=== PATIENT | female | born 1930 | race Caucasian/White ===

== ENCOUNTER 2018-06-05 15:53 | Emergency (ER) | payer OTHER, BC ==
--- NOTE | 2018-06-05 16:35 | RAD REPORT ---
EXAM DESCRIPTION: CT - Head C Spine Cap Wo Con - 06/05/2018 4:18 pm TECHNIQUE: Computed axial tomography of the head and cervical spine was obtained. Coronal and sagitt al reconstruction was performed Computed axial tomography of the chest, abdomen and pelvis was obtained. Contrast was not requested. All CT scans are performed using dose optimization technique as appropriate and may include automated exposure control or mA/KV adjustment according to patient size. CLINICAL HISTORY: Head and neck injury with chest and abdominal pain status post fall COMPARISON: None FINDINGS: An intracranial bleed is not seen. Moderate to marked low-density areas within periventricular, deep and subcortical white matter likely indicate ischemic changes secondary to small vessel disease The ventricles are normal in caliber. An extra-axial fluid collection is not noted Fluid within the sinuses/mastoids is not seen. A cervical fracture is not seen. No dislocation is noted. The evaluation of mediastinum, tea, vessels, solid organs and bowel are limited secondary to the lac k of contrast administration. A mediastinal hematoma is not noted. A pleural effusion is not seen. A lung contusion is not present. The liver,spleen, pancreas, adrenals,kidneys and bladder do not demonstrate a traumatic injury. Small to moderate hiatal hernia. IMPRESSION: 1. No acute intracranial abnormality is seen. 2. A cervical fracture is not visualized. If the patient continues to have symptoms to suggest intrac ranial/spinal cord pathology MRI would be recommended 3. No traumatic abnormality involving the chest/abdomen/pelvis.
[2018-06-05 16:50] LABS: Absolute Lymphocytes (CBC) 0.9 K/uL (0.7-4.9); Absolute Monocytes 0.5 K/uL (0.1-1.3); Absolute Neutrophil 6.1 K/uL (1.8-8.0); Basophils % 0.3 % (0-1.3); Eosinophils % 1.8 % (0-4.4); Lymphocytes % 12.1 % (15.3-44.8); MCH 33.1 pg (27.0-35.0); MCV 97.5 fL (80-100); MPV 8.2 fL (7.6-11.3); Monocytes % 6.2 % (3.3-12.3); RBC Red Blood Cell Count 4.52 M/uL (3.86-4.86)
[2018-06-05 17:01] LABS: Protime INR 1.06
[2018-06-05 17:20] LABS: Potassium 4.2 mmol/L (3.5-5.1)
[2018-06-05] MEDS ORDERED: NA CHLORIDE 0.9% 500 ML ONE (18:00)
--- NOTE | 2018-06-05 18:08 | EDPHYS ---
Physician Documentation [facility] Name: Cher Nelson Age: 88 yrs Sex: Female : 1930 Arrival Date: 06/05/2018 Time: 16:04 Bed 5 Private MD: ED Physician Naeem Bermudez HPI: 06/05 16:13 This 88 yrs old Female presents to ER via EMS with complaints of Fall Injury. rn 16:13 Details of fall: The patient fell from a height, off furniture. Onset: The rn symptoms/episode began/occurred just prior to arrival. Associated injuries: The patient sustained unknown. Severity of symptoms: At their worst the symptoms were mild, in the emergency department the symptoms have improved. The patient has experienced similar episodes in the past. Per EMS report, vomited, not sure if before or after fall but has a history of vertigo and dementia, [facility], "slid" off of bed, landed on floor, no obvious sign of trauma, but wanted her evaluated. . Historical: - Allergies: 16:14 No Known Allergies; ss - PMHx: 16:14 Anxiety; Depression; Dementia; Alzheimers; ss - Immunization history:: Adult Immunizations unknown. - Social history:: Smoking status: Patient/guardian denies using tobacco. - Ebola Screening: : Patient denies exposure to infectious person Patient denies travel to an Ebola-affected area in the 21 days before illness onset. - Family history:: not pertinent. - Hospitalizations: : No recent hospitalization is reported. ROS: 16:13 Unable to obtain ROS due to baseline dementia. rn Exam: 16:13 Constitutional: Thin woman, no acute distress, laying on backboard Head/Face: rn Normocephalic, atraumatic. Eyes: Pupils equal round and reactive to light. Periorbital areas with no swelling, redness, or edema. ENT: no oral trauma Neck: no midline tenderness, in ccollar Chest/axilla: Normal chest wall appearance and motion. Nontender with no deformity. No lesions are appreciated. Cardiovascular: Regular rate and rhythm. No pulse deficits. Respiratory: Lungs have equal breath sounds bilaterally, clear to auscultation. No increased work of breathing, no retractions or nasal flaring. Abdomen/GI: soft, non-tender Back: No spinal tenderness. MS/ Extremity: Pulses equal, no cyanosis. Neurovascular intact. Full, normal range of motion. Equal circumference. Neuro: Awake and alert, GCS 15, oriented to person, Motor strength 5/5 in all extremities. Sensory grossly intact. Cerebellar exam normal. Vital Signs: 16:08 BP 156 / 94; Pulse 90; Resp 16; Temp 97.4; Pulse Ox 97% on R/A; Pain 0/10; ss 17:18 BP 137 / 88; Pulse 87; Resp 18; Pulse Ox 98% on R/A; ph 18:51 BP 139 / 84; Pulse 88; Resp 17; Pulse Ox 98% on R/A; tw2 MDM: 16:09 Patient medically screened. rn 16:24 ED course: half-way contacted, states needed to throw up, so got out of bed rn quickly, fell, then threw up because she didn't make it to bathroom.. 18:06 Differential diagnosis: closed head injury, fracture, sprain, strain. Data reviewed: rn vital signs, nurses notes, lab test result(s), radiologic studies, CT scan, and as a result, I will discharge patient. Counseling: I had a detailed discussion with the patient and/or guardian regarding: the historical points, exam findings, and any diagnostic results supporting the discharge/admit diagnosis, lab results, radiology results, the need for outpatient follow up, to return to the emergency department if symptoms worsen or persist or if there are any questions or concerns that arise at home. Response to treatment: and as a result, I will discharge patient. Special discussion: I discussed with the patient/guardian in detail that at this point there is no indication for admission to the hospital. It is understood, however, that if the symptoms persist or worsen the patient needs to return immediately for re-evaluation. 18:08 ED course: No acute findings on ct head/cspine/chest/abd/pelvis, neg UA, will dc home rn as patient with known dementia and vertigo, fell while trying to get out of bed to throw up, no longer throwing up, asymptomatic, and stable vitals. . 06/05 16:08 Order name: CBC with Diff; Complete Time: 16:56 rn 06/05 16:08 Order name: Basic Metabolic Panel; Complete Time: 17:49 rn 06/05 16:08 Order name: PT-INR; Complete Time: 17:49 rn 06/05 16:08 Order name: Ptt, Activated; Complete Time: 17:49 rn 06/05 16:09 Order name: Urine Microscopic Only; Complete Time: 18:26 rn 06/05 18:26 Order name: Urine Dipstick--Ancillary (enter results) bd 06/05 16:08 Order name: IV Start; Complete Time: 16:23 rn 06/05 16:08 Order name: CT Traumagram (Head C Spine CAP wo con); Complete Time: 16:37 rn 06/05 16:08 Order name: EKG; Complete Time: 16:08 rn 06/05 16:08 Order name: EKG - Nurse/Tech; Complete Time: 16:23 rn 06/05 16:09 Order name: Urine Dipstick-Ancillary (obtain specimen); Complete Time: 17:18 rn Administered Medications: 17:54 Drug: NS 0.9% 500 ml Route: IV; Rate: bolus; Site: right wrist; tw2 19:01 Follow up: Response: No adverse reaction; IV Status: Completed infusion; IV Intake: tw2 500ml Disposition: 06/05/18 18:07 Discharged to Home. Impression: Vomiting, Fall without injury. - Condition is Stable. - Discharge Instructions: Fall Prevention in the Home, Nausea and Vomiting, Adult. - Medication Reconciliation Form, Thank You Letter, Antibiotic Education, Prescription Opioid Use form. - Follow up: Private Physician; When: As needed; Reason: Recheck today's complaints, Re-evaluation by your physician. - Problem is new. - Symptoms have improved. Signatures: Dispatcher [employer] EDMS Naeem Bermudez MD MD rn Smirch, Shelby, RN RN ss Krenek, Amber, RN RN ak1 Tarsha Colmenares RN RN tw2 Corrections: (The following items were deleted from the chart) 20:04 18:07 06/05/2018 18:07 Discharged to Home. Impression: Vomiting; Fall without injury. ak1 Condition is Stable. Forms are Medication Reconciliation Form, Thank You Letter, Antibiotic Education, Prescription Opioid Use. Follow up: Private Physician; When: As needed; Reason: Recheck today's complaints, Re-evaluation by your physician. Problem is new. Symptoms have improved. rn
--- NOTE | 2018-06-05 18:08 | ER ---
Nurse's Notes [facility] Name: Cher Nelson Age: 88 yrs Sex: Female : 1930 Arrival Date: 06/05/2018 Time: 16:04 Bed 5 Private MD: Diagnosis: Vomiting;Fall without injury Presentation: 06/05 16:09 Transition of care: patient was received from another setting of care (long-term care facility), [facility]. Onset of symptoms was June 05, 2018. Risk Assessment: Do you want to hurt yourself or someone else? Patient reports no desire to harm self or others. Initial Sepsis Screen: Does the patient meet any 2 criteria? No. Patient's initial sepsis screen is negative. Does the patient have a suspected source of infection? No. Patient's initial sepsis screen is negative. Care prior to arrival: Medication(s) given: Phenergan, 12.5 mg, IV initiated. 20 GA, in the right hand. 16:09 Acuity: KEVIN 3 ss 16:09 Method Of Arrival: EMS: [facility] ss 16:09 Presenting complaint: EMS states: Pt was getting out of bed to vomit in the restroom, ss but fell. Pt then vomited after. EMS reports that assisted told them that she has a history of vertigo and vomits during her dizzy episodes. Note Pt arrived on C collar and backboard. Historical: - Allergies: 16:14 No Known Allergies; ss - PMHx: 16:14 Anxiety; Depression; Dementia; Alzheimers; ss - Immunization history:: Adult Immunizations unknown. - Social history:: Smoking status: Patient/guardian denies using tobacco. - Ebola Screening: : Patient denies exposure to infectious person Patient denies travel to an Ebola-affected area in the 21 days before illness onset. - Family history:: not pertinent. - Hospitalizations: : No recent hospitalization is reported. Screenin:39 Abuse screen: Denies threats or abuse. Denies injuries from another. Nutritional ph screening: No deficits noted. Tuberculosis screening: No symptoms or risk factors identified. 16:40 Fall Risk Fall in past 12 months (25 points). Secondary diagnosis (15 points) dementia, ph IV access (20 points). Ambulatory Aid- Crutches/Cane/Walker (15 pts). Gait- Weak (10 pts.). Mental Status- Overestimates/Forgets Limitations (15 pts.). Total Nolan Fall Scale indicates High Risk Score (45 or more points). Fall prevention measures have been instituted. Side Rails Up X 2 Frequent Obs/Assessments Occuring Family Present and informed to notify staff if the need to leave the bedside As available patient and family educated on Fall Prevention Program and Strategies. Assessment: 16:15 Reassessment: Pt removed from backboard using log roll technique. Posterior examined by ss Dr. Bermudez. C collar remains in place. 16:41 General: Appears in no apparent distress. comfortable, slender, Behavior is calm, ph cooperative. Pain: Denies pain. Neuro: Level of Consciousness is awake, alert, obeys commands, Oriented to person, place, Reports dizziness, since this morning. Cardiovascular: Capillary refill < 3 seconds in bilateral fingers Patient's skin is warm and dry. Respiratory: Airway is patent Respiratory effort is even, unlabored, Respiratory pattern is regular, symmetrical, Denies shortness of breath pain with respiration. GI: Reports nausea, vomiting, since this morning Patient currently denies abdominal pain, diarrhea. Derm: Skin is intact, is fragile, is thin, Skin is pink, warm \T\ dry. 17:24 Reassessment: Patient appears in no apparent distress at this time. Patient and/or ph family updated on plan of care and expected duration. Pain level reassessed. c-collar removed. 18:49 Reassessment: Called Report to [facility] who stated that patient's ss granddaughter should be coming to pick patient up however they only have a phone number for a daughter in law, and are unsure when the family member will be coming to get her. 18:51 Reassessment: Patient appears in no apparent distress at this time. Patient and/or tw2 family updated on plan of care and expected duration. Pain level reassessed. 19:03 Reassessment: Lou Kapoor called, Azalia stated the family was to come pick pt up. Azalia costa1 informed to pt was not picked up and no face sheet or information sheet sent with pt for family contact. Azalia stated the night [facility], [place], is busy and can not get to the face sheet for family contact. Charge nurse informed. 19:14 Reassessment: pt daughter in law Alta Nelson contacted, stated she is in [place] and ak1 will contact her daughter to pick pt up. Charge nurse informed. Vital Signs: 16:08 BP 156 / 94; Pulse 90; Resp 16; Temp 97.4; Pulse Ox 97% on R/A; Pain 0/10; ss 17:18 BP 137 / 88; Pulse 87; Resp 18; Pulse Ox 98% on R/A; ph 18:51 BP 139 / 84; Pulse 88; Resp 17; Pulse Ox 98% on R/A; tw2 ED Course: 16:04 Patient arrived in ED. rn 16:09 Naeem Bermudez MD is Attending Physician. rn 16:[address] via stretcher. jj2 16:12 Triage completed. ss 16:13 Donna Queen RN is Primary Nurse. ph 16:14 Arm band placed on right wrist. ss 16:18 CT Traumagram (Head C Spine CAP wo con) In Process Unspecified. EDMS 16:18 CT completed. Patient moved back from CT. vm2 16:40 Patient has correct armband on for positive identification. Bed in low position. Call ph light in reach. Side rails up X 1. Pulse ox on. NIBP on. Warm blanket given. 16:44 EKG done, by ordnance technician. reviewed by Naeem Bermudez MD. dt2 17:15 Straight cath inserted, using sterile technique, 16 Fr. Returned beata urine. Patient ph tolerated well. 17:19 No provider procedures requiring assistance completed. Maintain EMS IV. Dressing ph intact. Good blood return noted. Site clean \T\ dry. Gauge \T\ site: 22 RFA. 17:27 Primary Nurse role handed off by Donna Queen RN tw2 17:27 Tarsha Colmenares RN is Primary Nurse. tw2 19:01 Report given to LISSETH Cota. tw2 19:01 IV discontinued, intact, bleeding controlled, No redness/swelling at site. Pressure tw2 dressing applied. Administered Medications: 17:54 Drug: NS 0.9% 500 ml Route: IV; Rate: bolus; Site: right wrist; tw2 19:01 Follow up: Response: No adverse reaction; IV Status: Completed infusion; IV Intake: tw2 500ml Intake: 19:01 IV: 500ml; Total: 500ml. tw2 Outcome: 18:07 Discharge ordered by . rn 20:02 Discharged to assisted. pt daughter in law picked pt up from ER5 to transport pt ak1 back to [facility]. 20:02 Condition: good 20:02 Discharge instructions given to family, Instructed on discharge instructions, follow up and referral plans. Demonstrated understanding of instructions, follow-up care, report called to [facility] by Jocelyne Kunz RN at 1700 20:04 Patient left the ED. ak1 Signatures: Dispatcher [employer] EDMS Deyvi Nelson Roman, MD MD rn Smirch, Jocelyne, RN RN Beata Darby RN RN ak1 Donna Queen RN RN Tarsha Colmenares, RN RN 2 Raquel Hinkle Danielle dt2 Corrections: (The following items were deleted from the chart) 16:40 16:39 Fall Risk None identified. ph ph 17:19 17:18 BP 129 / 72; Pulse 78bpm; Resp 18bpm; Pulse Ox 100% RA; Temp 97.8F; Pain 5/10; ph ph
[2018-06-05 18:15] LABS: Urine Bacteria <20 /HPF (<20); Urine Culture Reflex Order NOT NEEDED; Urine RBC <5 /HPF (NONE SEEN)
[2018-06-05 18:30] LABS: Urine Blood NEGATIVE (NEG); Urine Glucose NEGATIVE (NEG); Urine Protein NEGATIVE (NEG); Urine Specific Gravity >1.030 (1.005-1.030); Urine pH 6.5 (5.0-7.0)
--- NOTE | 2018-06-05 22:17 | EKG ---
Test Date: 2018-06-05 Test Time: 16:08:21 Physical Medicine Physician: GIA MEASUREMENT RESULTS: Intervals: Rate: 92 CT: 182 QRSD: 84 QT: 388 QTc: 479 Mayetta: P: 60 CT: 182 QRS: -54 T: 93 INTERPRETIVE STATEMENTS: Normal sinus rhythm Possible Left atrial enlargement Left anterior fascicular block Nonspecific ST and T wave abnormality Prolonged QT Abnormal ECG No previous ECG available for comparison Electronically Signed On 06-05-18 22:16:37 MANAGER TECHNICAL SUPPORT by Moshe Robert
== END 2018-06-05 20:04 | disposition home or self-care (01) ==
LOC: ER 15:53
DX: R11.10 Vomiting, unspecified (principal); G30.9 Alzheimer's disease, unspecified; F02.80 Dementia in other diseases classified elsewhere, unspecified severity, without behavioral disturbance, psychotic disturbance, mood disturbance, and anxiety; W06.XXXA Fall from bed, initial encounter; Y93.89 Activity, other specified; Y92.122 Bedroom in nursing home as the place of occurrence of the external cause
CPT/HCPCS: 36415; 70450; 71250; 72125; 80048; 81003; 81015; 85025; 85610; 85730; 93005

== ENCOUNTER 2018-06-06 04:27 | Emergency (ER) | payer OTHER, BC ==
[2018-06-06] MEDS ORDERED: ACETAMINOPHEN 500 MG TAB ONE (05:12)
[2018-06-06 05:25] LABS: Barbiturates NEGATIVE (NEGATIVE); Benzodiazepines NEGATIVE (NEGATIVE); Cocaine NEGATIVE (NEGATIVE); METHAMPHETAM NEGATIVE (NEGATIVE); Methadone NEGATIVE (NEGATIVE); Opiates NEGATIVE (NEGATIVE); Phencyclidine NEGATIVE (NEGATIVE); THC Cannibis NEGATIVE (NEGATIVE)
--- NOTE | 2018-06-06 07:27 | ER ---
Nurse's Notes [facility] Name: Cher Nelson Age: 88 yrs Sex: Female : 1930 Arrival Date: 06/06/2018 Time: 04:34 Bed 5 Private MD: Diagnosis: Compression fractures of T12 and L1 s/p fall Presentation: 06/06 04:34 Presenting complaint: EMS states: pt fell from bed or from possible standing position. ak1 pt from [facility] was seen in ER earlier tonight. pt A\\T\\OX2 only. pt fell at approximately 0300 and placed back in bed at [facility]. pt c/o lower back pain. pt complains the "back board hurts" pt was not placed on back board for transport. Transition of care: patient was received from another setting of care (long-term care facility), [facility]. Onset of symptoms was June 06, 2018. Risk Assessment: Do you want to hurt yourself or someone else? Patient reports no desire to harm self or others. Initial Sepsis Screen: Does the patient meet any 2 criteria? No. Patient's initial sepsis screen is negative. Does the patient have a suspected source of infection? No. Patient's initial sepsis screen is negative. Care prior to arrival: None. 04:34 Method Of Arrival: EMS: [facility] ak1 04:34 Acuity: KEVIN 4 ak1 Triage Assessment: 04:42 General: Appears uncomfortable, Behavior is anxious, restless. Pain: Complains of pain ak1 in lower back pain. EENT: No signs and/or symptoms were reported regarding the EENT system. Neuro: Level of Consciousness is awake, alert, confused, Oriented to person, situation, Speech is normal, Pupils are constricted. Cardiovascular: No deficits noted. Respiratory: No deficits noted. GI: No signs and/or symptoms were reported involving the gastrointestinal system. : No signs and/or symptoms were reported regarding the genitourinary system. Derm: No signs and/or symptoms reported regarding the dermatologic system. Musculoskeletal: No signs and/or symptoms reported regarding the musculoskeletal system. Historical: - Allergies: 04:42 No Known Allergies; ak1 - Home Meds: 04:42 donepezil 10 mg oral TbDL 1 tab once daily [Active]; losartan 50 mg oral tab 1 tab once ak1 daily [Active]; meclizine 12.5 mg Oral tab 1 tabs 2 times per day [Active]; quetiapine 25 mg oral tab 1 tab 2 times per day [Active]; quetiapine 50 mg oral tab 1 tab at bed time [Active]; senna 8.6 mg oral cap 1 caps once daily [Active]; venlafaxine 150 mg oral cp24 1 cap once daily [Active]; lorazepam 1 mg Oral tab 1 tab 3 times per day [Active]; ondansetron HCl 4 mg Oral tab 1 tabs 3 times per day [Active]; - PMHx: 04:42 Alzheimers; Anxiety; Dementia; Depression; ak1 - Immunization history:: Adult Immunizations unknown. - Social history:: Smoking status: Patient/guardian denies using tobacco. - Ebola Screening: : No symptoms or risks identified at this time. - Family history:: not pertinent. - Hospitalizations: : No recent hospitalization is reported. Screenin:47 Abuse screen: Denies threats or abuse. Denies injuries from another. Nutritional ak1 screening: No deficits noted. Tuberculosis screening: No symptoms or risk factors identified. Fall Risk Fall in past 12 months (25 points). Assessment: 05:01 Reassessment: see triage assessment. ak1 05:52 Reassessment: Patient appears in no apparent distress at this time. No changes from ak1 previously documented assessment. 06:39 Reassessment: pt restless. pt informed of wait for CT results. ak1 06:39 Reassessment: pt with sitter at bedside due to pt trying to climb out of bed on ak1 previous visits. 07:59 Reassessment: Patient appears in no apparent distress at this time. Patient and/or ph family updated on plan of care and expected duration. Pain level reassessed. Pt resting quietly, remains in bed, report called to LISSETH Flynn at [facility], awaiting EMS for transport. 08:15 Reassessment: Patient appears in no apparent distress at this time. [facility] at bedside, ph report given to disease case manager, spoke w/ pt's son on phone who is pt's POA and notified him of transfer, also contacted Rina at [facility] and gave son's contact info. Vital Signs: 04:42 BP 167 / 106; Pulse 99; Resp 18; Temp 98.0; Pulse Ox 97% on R/A; Weight 60.78 kg (R); ak1 Height 5 ft. 6 in. (167.64 cm) (R); Pain 7/10; 05:36 BP 189 / 94; Pulse 96; Resp 18; Pulse Ox 97% on R/A; ak1 05:51 BP 179 / 93; Pulse 93; Resp 18; Temp 98.1; Pulse Ox 97% on R/A; ak1 07:20 BP 168 / 92; Pulse 96; Resp 20; Temp 97.8; Pulse Ox 98% on R/A; ph 04:42 Body Mass Index 21.63 (60.78 kg, 167.64 cm) ak1 ED Course: 04:34 Patient arrived in ED. ak1 04:35 Low Oliva MD is Attending Physician. me 04:37 Triage completed. ak1 04:42 Arm band placed on Patient placed in an exam room, on a stretcher, on pulse oximetry, ak1 Patient notified of wait time. 04:47 Patient has correct armband on for positive identification. Bed in low position. Side ak1 rails up X2. Pulse ox on. NIBP on. 04:48 Beata Christianson, LISSETH is Primary Nurse. ak1 05:01 UDS Sent. ak1 05:02 Straight cath inserted, using sterile technique, 16 Fr. Returned clear yellow urine. ak1 Patient tolerated well. 05:08 X-ray completed. Portable x-ray completed in exam room. Patient tolerated procedure kw well. 05:09 Pelvis XRAY In Process Unspecified. EDMS 05:09 Chest Single View XRAY In Process Unspecified. EDMS 05:[address] Spine WO Cont CT In Process Unspecified. EDMS 05:45 CT C Spine In Process Unspecified. EDMS 05:45 CT Lumbar Spine Wo Con In Process Unspecified. EDMS 07:03 initiated transfer with Tanna at the [facility]. eb 07:18 administrative approval given by Tanna Li RN at the [facility]/ eb Shyann Poon accepted the patient in transfer/ Pt going to the ER / report to be called to [phone]. 08:01 No provider procedures requiring assistance completed. Patient did not have IV access ph during this emergency room visit. Administered Medications: 05:09 Drug: Tylenol 1000 mg {Note: pt unable to swallow pills, pt placed pills under her ak1 tounge. .} Route: PO; 05:18 Follow up: Response: pt unable to swallow pills, pt placed pills under her tounge ak1 instead of swallowing pills. Outcome: 07:26 ER care complete, transfer ordered by . me 08:24 Patient left the ED. 08:24 Transferred by ground [facility] to [facility], Transfer form ph completed. X-rays sent w/ patient. Note: Report called to Rina OMNTANEZ in ED 08:24 Condition: stable Signatures: Dispatcher [employer] EDMS Lisa Caraballo Amber RN RN ak Donna Queen RN RN [facility], MD MD ayleen Kelsey Elizabeth eb
--- NOTE | 2018-06-06 07:27 | EDPHYS ---
Physician Documentation [facility] Name: Cher Nelson Age: 88 yrs Sex: Female : 1930 Arrival Date: 06/06/2018 Time: 04:34 Bed 5 Private MD: ED Physician Low Oliva HPI: 06/06 05:35 This 88 yrs old Female presents to ER via EMS with complaints of Fall Injury. wa 05:35 Details of fall: The patient fell from a supine position, out of bed. Onset: The wa symptoms/episode began/occurred just prior to arrival. Associated injuries: The patient sustained upper back injury. Severity of symptoms: At their worst the symptoms were moderate, in the emergency department the symptoms are unchanged. The patient has experienced similar episodes in the past. The patient has been recently seen by a physician: grace hawkins for same today from the ED. Historical: - Allergies: 04:42 No Known Allergies; ak1 - Home Meds: 04:42 donepezil 10 mg oral TbDL 1 tab once daily [Active]; losartan 50 mg oral tab 1 tab once ak1 daily [Active]; meclizine 12.5 mg Oral tab 1 tabs 2 times per day [Active]; quetiapine 25 mg oral tab 1 tab 2 times per day [Active]; quetiapine 50 mg oral tab 1 tab at bed time [Active]; senna 8.6 mg oral cap 1 caps once daily [Active]; venlafaxine 150 mg oral cp24 1 cap once daily [Active]; lorazepam 1 mg Oral tab 1 tab 3 times per day [Active]; ondansetron HCl 4 mg Oral tab 1 tabs 3 times per day [Active]; - PMHx: 04:42 Alzheimers; Anxiety; Dementia; Depression; ak1 - Immunization history:: Adult Immunizations unknown. - Social history:: Smoking status: Patient/guardian denies using tobacco. - Ebola Screening: : No symptoms or risks identified at this time. - Family history:: not pertinent. - Hospitalizations: : No recent hospitalization is reported. ROS: 05:37 Constitutional: Negative for fever, chills, and weight loss, Eyes: Negative for injury, wa pain, redness, and discharge, ENT: Negative for injury, pain, and discharge, Neck: Negative for injury, pain, and swelling, Cardiovascular: Negative for chest pain, palpitations, and edema, Respiratory: Negative for shortness of breath, cough, wheezing, and pleuritic chest pain, Abdomen/GI: Negative for abdominal pain, nausea, vomiting, diarrhea, and constipation, MS/Extremity: Negative for injury and deformity, Skin: Negative for injury, rash, and discoloration, Neuro: Negative for headache, weakness, numbness, tingling, and seizure. 05:37 Back: Positive for pain with movement, of the thoracic area and lumbar area. 05:37 All other systems are negative. Exam: 05:37 Constitutional: This is a well developed, well nourished patient who is awake, alert, wa and in no acute distress. Head/Face: Normocephalic, atraumatic. ENT: Nares patent. No nasal discharge, no septal abnormalities noted. Tympanic membranes are normal and external auditory canals are clear. Oropharynx with no redness, swelling, or masses, exudates, or evidence of obstruction, uvula midline. Mucous membranes moist. Neck: Trachea midline, no thyromegaly or masses palpated, and no cervical lymphadenopathy. Supple, full range of motion without nuchal rigidity, or vertebral point tenderness. No Meningismus. Cardiovascular: Regular rate and rhythm with a normal S1 and S2. No gallops, murmurs, or rubs. Normal PMI, no JVD. No pulse deficits. Respiratory: Lungs have equal breath sounds bilaterally, clear to auscultation and percussion. No rales, rhonchi or wheezes noted. No increased work of breathing, no retractions or nasal flaring. Abdomen/GI: Soft, non-tender, with normal bowel sounds. No distension or tympany. No guarding or rebound. No evidence of tenderness throughout. Skin: Warm, dry with normal turgor. Normal color with no rashes, no lesions, and no evidence of cellulitis. MS/ Extremity: Pulses equal, no cyanosis. Neurovascular intact. Full, normal range of motion. Neuro: Awake and alert, GCS 15, oriented to person, place, time, and situation. Cranial nerves II-XII grossly intact. Motor strength 5/5 in all extremities. Sensory grossly intact. Cerebellar exam normal. Normal gait. 05:37 Eyes: Pupils: pinpoint, bilaterally. 05:37 Back: vertebral tenderness, is appreciated at T6, T7, T8, T11, T12 and L1. Vital Signs: 04:42 BP 167 / 106; Pulse 99; Resp 18; Temp 98.0; Pulse Ox 97% on R/A; Weight 60.78 kg (R); ak1 Height 5 ft. 6 in. (167.64 cm) (R); Pain 7/10; 05:36 BP 189 / 94; Pulse 96; Resp 18; Pulse Ox 97% on R/A; ak1 05:51 BP 179 / 93; Pulse 93; Resp 18; Temp 98.1; Pulse Ox 97% on R/A; ak1 07:20 BP 168 / 92; Pulse 96; Resp 20; Temp 97.8; Pulse Ox 98% on R/A; ph 04:42 Body Mass Index 21.63 (60.78 kg, 167.64 cm) ak1 MDM: 04:35 Patient medically screened. ne 05:38 Differential diagnosis: fall. r/o FX. pt had a full work up earlier today that was ne negative. will eval to r/o fx. 07:01 Data reviewed: vital signs, nurses notes. Test interpretation: by ED physician or ne midlevel provider: CXR: no acute process. Pelvic X-ray: no acute fx. CT c-spine: no acute fx. T/L spine CT: compression fractures at T12 and L1. unknown chronicity . Response to treatment: the patient's symptoms have mildly improved after treatment. Special discussion: compression fx's in the T12 and L1. will transfer to higher level of care for further eval.. 06/06 04:45 Order name: UDS; Complete Time: 05:34 ne 06/06 04:45 Order name: Pelvis XRAY ne 06/06 04:45 Order name: Chest Single View XRAY ne 06/06 04:48 Order name: Thoracic Spine WO Cont CT ne 06/06 04:48 Order name: CT C Spine ne 06/06 04:48 Order name: CT Lumbar Spine Wo Con ne Administered Medications: 05:09 Drug: Tylenol 1000 mg {Note: pt unable to swallow pills, pt placed pills under her ak1 tounge. .} Route: PO; 05:18 Follow up: Response: pt unable to swallow pills, pt placed pills under her tounge ak1 instead of swallowing pills. Disposition: 06/06/18 07:26 Transfer ordered to [facility]. Diagnosis is Compression fractures of T12 and L1 s/p fall. - Reason for transfer: Higher level of care. - Accepting physician is Anne-Marie najera. - Condition is Stable. - Problem is new. - Symptoms are unchanged. Signatures: Dispatcher [employer] EDBeata Dickinson RN RN ak1 Donna Queen RN RN ph [facility] MD wa Corrections: (The following items were deleted from the chart) 08: 07:26 06/06/2018 07:26 Transfer ordered to [facility]. ph Diagnosis is Compression fractures of T12 and L1 s/p fall. Reason for transfer: Higher level of care. Accepting physician is Anne-Marie najera. Condition is Stable. Problem is new. Symptoms are unchanged. wa
--- NOTE | 2018-06-06 09:04 | RAD REPORT ---
EXAM DESCRIPTION: RAD - Chest Single View - 06/06/2018 5:09 am CLINICAL HISTORY: Fall, chest pain COMPARISON: CT trauma study June 05. TECHNIQUE: AP portable chest image was obtained 0455 hours . FINDINGS: Fibrotic lung pattern seen. No pulmonary contusion or acute lung parenchymal process. Hear t and vasculature are normal. No measurable pleural effusion and no pneumothorax. No displaced rib fr acture identifiable. There is questionable fracture lateral left tenth rib. Rib detail is limited on this examination. No gross rib deformity on the CT trauma study. No acute aortic findings suspected. IMPRESSION: No acute cardiopulmonary process. Slight cortical irregularity lateral left tenth rib is seen. Rib detail is limited on this examinatio n. No significant rib finding on the prior day CT chest study.
--- NOTE | 2018-06-06 09:05 | RAD REPORT ---
EXAM DESCRIPTION: RAD - Pelvis - 06/06/2018 5:09 am CLINICAL HISTORY: Fall, pelvic pain COMPARISON: CT trauma study June 05 TECHNIQUE: AP imaging of the pelvis was obtained. FINDINGS: No fracture of the bony pelvis. No fracture, dislocation or other acute hip joint finding. No significant SI joint findings. Lower lumbar and SI joint degenerative changes are present. Due to positioning, femoral neck assessme nt is somewhat limited. No soft tissue abnormality. IMPRESSION: Negative pelvis for acute or significant findings.
--- NOTE | 2018-06-06 09:30 | RAD REPORT ---
EXAM DESCRIPTION: CT - Thoracic Spine W/o Cont - 06/06/2018 5:45 am CLINICAL HISTORY: Fall, thoracic pain A preliminary report was provided at the time of the study and reviewed prior to final report. COMPARISON: None. TECHNIQUE: Axial 2 mm thick images of the cervical spine were obtained with sagittal and coronal rec onstruction images generated and reviewed. All CT scans are performed using dose optimization technique as appropriate and may include automated exposure control or mA/KV adjustment according to patient size. FINDINGS: T1-T7 bodies are normal in height. No lytic, sclerotic or expansile destructive process. N o paraspinal mass identified. Slight wedging of the T8 vertebral body is noted. Posterior wall height is preserved. No acute fracture line seen on the axial image. No encroachment into the central canal . T9-T10 vertebrae are normal in height with no acute findings. Mild wedging involves the inferior endplate T11. Posterior wall height is preserved. Schmorl's node i s seen. No acute fracture line identified. No canal encroachment. T12 body shows 40% compression fracture deformity. Posterior wall height is maintained with only jia y minimal encroachment into the central canal from the posterosuperior wall. No acute fracture line i dentifiable. No paraspinal component. No lytic, sclerotic or expansile destructive process. Central canal detail is inherently limited on CT imaging. IMPRESSION: Approximately 40% T12 compression fracture deformity with posterior wall height preserve d. Minimal 10% wedge compression of the inferior endplate T11. Minimal wedge deformity of the T8 body with posterior wall height preserved. Absent or very minimal encroachment into the central canal seen at the compression fracture sites as detailed. No acute fracture lines are seen. Age of the compression fractures is uncertain. As clinical findings warrant, MR imaging could be utilized to assess for any acute compression fractu re findings.
--- NOTE | 2018-06-06 09:34 | RAD REPORT ---
EXAM DESCRIPTION: CT - C Spine Wo Con - 06/06/2018 6:43 am CLINICAL HISTORY: Fall, neck pain A preliminary report was provided at the time of the study and reviewed prior to final report. COMPARISON: None. TECHNIQUE: Axial 2 mm thick images of the cervical spine were obtained with sagittal and coronal rec onstruction images generated and reviewed. All CT scans are performed using dose optimization technique as appropriate and may include automated exposure control or mA/KV adjustment according to patient size. FINDINGS: Cervical body height and alignment are normal. C6-7 disc space narrowing and endplate spur ring changes are present. No fracture or acute bony abnormality. No paraspinal mass or hematoma. Central canal detail is inherently limited. No gross evidence for large disc herniation or a signific ant degree of disc bulging. Bilateral foraminal encroachment changes are present at C6-7. Facet joint degenerative changes are present. IMPRESSION: No cervical spine fracture identified. Degenerative change present as detailed. Findings are more pronounced at C6-7 were bilateral foramina l encroachment changes are evident.
--- NOTE | 2018-06-06 09:38 | RAD REPORT ---
EXAM DESCRIPTION: CT - Spine Lumbar Wo Con - 06/06/2018 5:45 am CLINICAL HISTORY: Fall, back pain A preliminary report was provided at the time of the study and reviewed prior to final report. COMPARISON: None. TECHNIQUE: Thin section axial imaging of the lumbar spine was performed. Sagittal and coronal recon struction images were generated and reviewed. All CT scans are performed using dose optimization technique as appropriate and may include automated exposure control or mA/KV adjustment according to patient size. FINDINGS: L1 body shows approximately 20% compression fracture deformity involving the superior endp late. Posterior wall height is preserved. No canal encroachment seen. No acute fracture line seen gurjit ng the superior endplate. Age of the compression fracture is indeterminate. L2-L5 bodies are normal in height and alignment. Advanced degenerative disc disease present at L5-S1 with disc space narrowing and degenerative gas in the disc space. T12-L1 through L2-3 disc levels show no herniation or significant disc bulge. L3-4 mild disc bulge changes present without canal stenosis suspected. L4-5 disc bulge also seen with out central canal stenosis. Near complete loss in height at the L5-S1 level with posterior endplate spurring. There is degenerati ve gas attenuation in the left central canal near the exit foramen. Protruding or herniated disc is s uspected. There is associated endplate spurring and soft tissue calcification. Central spinal stenosi s is not seen. Left foraminal encroachment may well be present. Findings would favor this to be chron ic. IMPRESSION: Approximately 20% L1 compression fracture deformity with posterior wall height preserved . Page of the fracture is uncertain. No other acute bone finding. Advanced degenerative disc disease L5-S1 with probable protrusion or herniation of disc material left central canal near the exit foramen. Followup MR imaging could be performed to further evaluate the L5- S1 findings as well as assess L1 f or active marrow edema.
== END 2018-06-06 08:24 | disposition short-term general hospital (02) ==
LOC: ER 04:27
DX: S22.089A Unspecified fracture of T11-T12 vertebra, initial encounter for closed fracture (principal); S32.019A Unspecified fracture of first lumbar vertebra, initial encounter for closed fracture; W06.XXXA Fall from bed, initial encounter; Y93.9 Activity, unspecified; Y92.9 Unspecified place or not applicable; G30.9 Alzheimer's disease, unspecified; F02.80 Dementia in other diseases classified elsewhere, unspecified severity, without behavioral disturbance, psychotic disturbance, mood disturbance, and anxiety; F32.9 Major depressive disorder, single episode, unspecified
CPT/HCPCS: 51702; 71045; 72125; 72128; 72131; 72170; 80307; 99285

== ENCOUNTER 2018-08-10 15:45 | Emergency (ER) | payer OTHER, BC ==
--- NOTE | 2018-08-10 17:51 | RAD REPORT ---
EXAM DESCRIPTION: CT - Hand Right Wo Con - 08/10/2018 5:38 pm CLINICAL HISTORY: Hand pain, trauma, abnormal outside hand/wrist film with CT recommendation COMPARISON: No images were available for correlation. TECHNIQUE: Axial 2 millimeter thick images of the wrist were obtained with coronal and sagittal refo rmatted images generated and reviewed. The CT scan was performed using dose optimization techniques as appropriate to a performed exam incl uding one or more of the following: Automated exposure control, adjustment of the mA and/or kV accord ing to patient size (this includes techniques or standardized protocols for targeted exams where dose is matched to indication/reason for exam) and use of iterative reconstruction technique. FINDINGS: Imaging included the hand and the wrist. No additional or separate CT wrist examination pe rformed. Distal radius and ulna are intact. There are degenerative calcifications at the triangular fibrocarti tray. Patient has an underlying mild degenerative pattern in the carpal bones. All carpal bones are intact including the hamate bone. Patient has a comminuted fracture of the fifth metacarpal base. There are numerous small fracture fra gments. The metacarpal bases impacted onto the hamate bone with multiple small fracture fragments gurjit ng the ulna side margin of the hamate. No angulation deformity seen. No pathologic bone process suspe cted. The first-fourth metacarpal bones and the phalanges are intact. Patient does have IP joint degenerati ve change. Soft tissue swelling is present. No air or foreign body in the soft tissues. IMPRESSION: Comminuted fracture at the right fifth metacarpal base. There are numerous small fracture fragments present with an overall impaction of the metacarpal base onto the ulna side of the hamate bone. The hamate bone is intact. No other acute bone or joint finding. No foreign body.
[2018-08-10] MEDS ORDERED: MORPHINE 4 MG/ML SYR ONE (17:53)
--- NOTE | 2018-08-10 18:17 | ER ---
Nurse's Notes [facility] Name: Cher Nelson Age: 88 yrs Sex: Female : 1930 Arrival Date: 08/10/2018 Time: 15:52 Bed 19 Private MD: Diagnosis: 5th Metacarpal Fracture Presentation: 08/10 15:53 Presenting complaint: EMS states: called out for CT of the right hand, pt had x-ray em done today with "an acute comminuted displaced fracture epiphyses and proximal metaphyses of the fifth metacarpal" on report, bruising and swelling noted to the right hand and wrist area, pt lives at [facility] and fell on furniture yesterday, pt is normally A\\T\\Ox2, no other injuries noted. Transition of care: patient was not received from another setting of care. Onset of symptoms was August 09, 2018. Risk Assessment: Do you want to hurt yourself or someone else? Patient reports no desire to harm self or others. Initial Sepsis Screen: Does the patient meet any 2 criteria? No. Patient's initial sepsis screen is negative. Does the patient have a suspected source of infection? No. Patient's initial sepsis screen is negative. Care prior to arrival: None. 15:53 Method Of Arrival: EMS: [facility] [place] em 16:05 Acuity: KEVIN 4 ss Triage Assessment: 16:00 General: Appears in no apparent distress. comfortable, Behavior is calm, cooperative. em Pain: Complains of pain in right hand. Derm: Bruising that is bright red. Musculoskeletal: Swelling present in right hand. Injury Description: mechanical fall. Historical: - Allergies: 16:00 No Known Allergies; em - PMHx: 16:00 Alzheimers; Anxiety; Dementia; Depression; em - Immunization history:: Adult Immunizations unknown. - Social history:: Smoking status: unknown. - Ebola Screening: : Patient negative for fever greater than or equal to 101.5 degrees Fahrenheit, and additional compatible Ebola Virus Disease symptoms Patient denies exposure to infectious person Patient denies travel to an Ebola-affected area in the 21 days before illness onset No symptoms or risks identified at this time. Screenin:03 Abuse screen: no apparent signs noted. Nutritional screening: No deficits noted. em Tuberculosis screening: No symptoms or risk factors identified. Fall Risk Fall in past 12 months (25 points). Secondary diagnosis (15 points) Alzheimer's, dementia, impaired mobility, Ambulatory Aid- None/Bed Rest/Nurse Assist (0 pts). Total Nolan Fall Scale indicates Low Risk Score (25-44 pts). Side Rails Up X 2 Placed close to Nursing Station Frequent Obs/Assesments occuring. Assessment: 16:00 General: Appears in no apparent distress. comfortable, Behavior is calm, cooperative. em Pain: Complains of pain in right hand. Neuro: Level of Consciousness is awake, alert, obeys commands, Oriented to person, place, situation. Cardiovascular: Capillary refill < 3 seconds Patient's skin is warm and dry. Respiratory: Airway is patent Respiratory effort is even, unlabored, Respiratory pattern is regular, symmetrical. GI: Abdomen is flat. Derm: Skin is intact, Bruising that is bright red, on right hand. Musculoskeletal: Range of motion: limited in right wrist and MCP of right little finger Swelling present in right hand. 16:02 General: The previous assessment is accurate, call light remains within reach. ss 16:50 Reassessment: spoke with Lizeth at [facility] about what test they wanted em or if they wanted a splint placed, she was unsure of what their doctor wanted, provider notified, will order CT and place appropriate splint. 17:30 Reassessment: Patient appears in no apparent distress at this time. pt wheeled to CT em via stretcher. 17:38 Reassessment: Patient and/or family updated on plan of care and expected duration. Pain em level reassessed. pt reports being in pain, reports pain is in her back, provider notified new medication orders received. 18:14 Reassessment: Patient appears in no apparent distress at this time. Patient and/or em family updated on plan of care and expected duration. Pain level reassessed. pt reports being hungry, sandwich, chips and grape juice given. 18:34 Reassessment: Patient appears in no apparent distress at this time. report given to carol Stanley at [facility], states they will try to arrange transportation with [facility], [place], will call back with transportation information. 18:46 Reassessment: Patient appears in no apparent distress at this time. Patient and/or em family updated on plan of care and expected duration. Pain level reassessed. ETA for transportation is 30-60 mins per Anitra at [facility], pt resting comfortably. 21:01 Reassessment: Patient appears in no apparent distress at this time. Patient and/or tl2 family updated on plan of care and expected duration. Pain level reassessed. [facility] arrived to nut picker pt, pt awake and alert. Vital Signs: 16:00 BP 115 / 55; Pulse 67; Resp 16; Temp 98.1(O); Pulse Ox 99% on R/A; Weight 56.7 kg; em Height 6 ft. 7 in. (200.66 cm); 17:00 BP 144 / 77; Pulse 71; Resp 18; Pulse Ox 97% on R/A; em 17:37 BP 143 / 70; Pulse 71; Resp 18; Pulse Ox 99% on R/A; em 18:29 BP 149 / 77; Pulse 68; Resp 18; Pulse Ox 99% on R/A; em 21:01 BP 148 / 69; Pulse 70; Resp 18; Pulse Ox 99% on R/A; tl2 16:00 Body Mass Index 14.08 (56.70 kg, 200.66 cm) em ED Course: 15:52 Patient arrived in ED. em 16:00 Arm band placed on. em 16:02 Meng Whitfield LVN is Primary Nurse. em 16:03 Patient has correct armband on for positive identification. Bed in low position. Call em light in reach. Placed in gown. Side rails up X2. Pulse ox on. NIBP on. 16:05 Triage completed. ss 16:13 Eliseo Jeffrey PA is PHCP. jmm 16:13 Carlos Ramírez MD is Attending Physician. jmm 17:38 Hand Right Wo Con In Process Unspecified. EDMS 17:45 CT completed. Patient tolerated procedure well. Patient moved back from CT. bq 18:14 Prem Reyes MD is Referral Physician. jmm 18:20 No provider procedures requiring assistance completed. Patient did not have IV access em during this emergency room visit. Orthoglass splint: Ulnar gutter/Boxer splint applied on right forearm. 21:02 Primary Nurse role handed off by Meng Whitfield LVN ed1 Administered Medications: 17:45 Drug: morphine 2 mg Route: IM; Site: right deltoid; em 18:28 Follow up: Response: No adverse reaction; Pain is decreased em Outcome: 18:15 Discharge ordered by MD. harris 18:57 Discharged to senior care. Report called to Lizeth em 18:57 Condition: good 18:57 Discharge instructions given to senior care, EMS, Instructed on discharge instructions, follow up and referral plans. Demonstrated understanding of instructions, follow-up care, splint care. 21:02 Patient left the ED. tl2 Signatures: Dispatcher [employer] EDMS Eliseo Jeffrey PA PA jmm Quilty, Betty bq Munoz, Meng, DROP FORGER DROP FORGER em Jocelyne Waite, RN RN Catina Baer, DROP FORGER DROP FORGER ed1 Yoana Grimaldo, RN RN tl2 Corrections: (The following items were deleted from the chart) 17:53 17:38 Reassessment: Patient and/or family updated on plan of care and expected em duration. Pain level reassessed. Patient is alert, oriented x 3, equal unlabored respirations, skin warm/dry/pink. pt reports being in pain, reports pain is in her back, provider notified new medication orders received em 18:36 18:34 Reassessment: Patient appears in no apparent distress at this time. report given em to Lizeth at [facility], states they will try to arrange transportation with [facility] [place] em
--- NOTE | 2018-08-10 18:17 | EDPHYS ---
Physician Documentation [facility] Name: Cher Nelson Age: 88 yrs Sex: Female : 1930 Arrival Date: 08/10/2018 Time: 15:52 Bed 19 Private MD: ED Physician Carlos Ramírez HPI: 08/10 16:23 This 88 yrs old Female presents to ER via EMS with complaints of Hand Injury. m 16:23 The patient or guardian reports injury, pain. Onset: The symptoms/episode jmm began/occurred acutely, 1 day(s) ago. Modifying factors:. Associated signs and symptoms:. This is an 88 year female with a history of anxiety, dementia, depression that presents to the ED with pain to the right hand after a fall on a table yesterday. Plain films revealed fracture of of the right hand. retirement sent patient to ED for further evaluation. Patient denies other injury. Patient denies chest pain or shortness of breath. Denies back pain. . Historical: - Allergies: 16:00 No Known Allergies; em - PMHx: 16:00 Alzheimers; Anxiety; Dementia; Depression; em - Immunization history:: Adult Immunizations unknown. - Social history:: Smoking status: unknown. - Ebola Screening: : Patient negative for fever greater than or equal to 101.5 degrees Fahrenheit, and additional compatible Ebola Virus Disease symptoms Patient denies exposure to infectious person Patient denies travel to an Ebola-affected area in the 21 days before illness onset No symptoms or risks identified at this time. ROS: 16:23 Constitutional: Negative for fever, chills, and weight loss, Cardiovascular: Negative jm for chest pain, palpitations, and edema, Respiratory: Negative for shortness of breath, cough, wheezing, and pleuritic chest pain. 16:23 MS/extremity: Positive for injury or acute deformity, pain. 16:23 All other systems are negative. Exam: 16:23 Head/Face: atraumatic. Chest/axilla: Normal chest wall appearance and motion. jmm Cardiovascular: Regular rate and rhythm. No edema appreciated Respiratory: Normal respirations, no respiratory distress appreciated Abdomen/GI: Non distended, soft 16:23 Constitutional: The patient appears in no acute distress, alert, awake. 16:23 Chest/axilla: Inspection: normal, Palpation: is normal, no tenderness. 16:23 Cardiovascular: Rate: normal, Rhythm: regular, Pulses: no pulse deficits are appreciated. 16:23 Respiratory: the patient does not display signs of respiratory distress, Respirations: normal, Breath sounds: are clear throughout. 16:23 Abdomen/GI: Inspection: abdomen appears normal, Bowel sounds: normal, Palpation: abdomen is soft and non-tender. 16:23 Musculoskeletal/extremity: ecchymosis and swelling is appreciated to the right hand, (+) snuff box tenderness, full radial pulse, compartments are soft, NVI. Vital Signs: 16:00 BP 115 / 55; Pulse 67; Resp 16; Temp 98.1(O); Pulse Ox 99% on R/A; Weight 56.7 kg; em Height 6 ft. 7 in. (200.66 cm); 17:00 BP 144 / 77; Pulse 71; Resp 18; Pulse Ox 97% on R/A; em 17:37 BP 143 / 70; Pulse 71; Resp 18; Pulse Ox 99% on R/A; em 18:29 BP 149 / 77; Pulse 68; Resp 18; Pulse Ox 99% on R/A; em 21:01 BP 148 / 69; Pulse 70; Resp 18; Pulse Ox 99% on R/A; tl2 16:00 Body Mass Index 14.08 (56.70 kg, 200.66 cm) em Procedures: 16:23 Splinting: Splint applied to right hand using ulnar gutter. applied by tech. Examined jmm by me, post splint application: neurovascular intact, 2+ distal pulses palpable, brisk capillary refill noted. MDM: 16:23 Patient medically screened. [facility] 18:11 Data reviewed: vital signs, nurses notes. Counseling: I had a detailed discussion with kimberly the patient and/or guardian regarding: the historical points, exam findings, and any diagnostic results supporting the discharge/admit diagnosis, radiology results, the need for outpatient follow up, to return to the emergency department if symptoms worsen or persist or if there are any questions or concerns that arise at home. 08/10 17:05 Order name: Hand Right Wo Con; Complete Time: 17:55 EDMS 08/10 17:56 Order name: Ulnar Gutter splint; Complete Time: 18:28 jmmurali Administered Medications: 17:45 Drug: morphine 2 mg Route: IM; Site: right deltoid; em 18:28 Follow up: Response: No adverse reaction; Pain is decreased em Disposition: 08/10/18 18:15 Discharged to Home. Impression: 5th Metacarpal Fracture. - Condition is Stable. - Discharge Instructions: Boxer's Fracture. - Medication Reconciliation Form, Thank You Letter, Antibiotic Education, Prescription Opioid Use form. - Follow up: Prem Reyes MD; When: 1 - 2 days; Reason: Recheck today's complaints, Continuance of care, Re-evaluation by your physician. Addendum: 08/13/2018 10:18 Co-signature as Attending Physician, Carlos Ramírez MD. g s Signatures: Dispatcher [employer] EDCT Eliseo Jeffrey PA PA [facility] Meng Whitfield, FIRE ENGINEER FIRE ENGINEER em Yoana Grimaldo, RN RN tl2 Carlos Ramírez MD MD Corrections: (The following items were deleted from the chart) 08/10 17:46 17:05 Wrist Right Wo Cont ordered. EDCT EDCT 21:02 18:15 08/10/2018 18:15 Discharged to Home. Impression: 5th Metacarpal Fracture. tl2 Condition is Stable. Forms are Medication Reconciliation Form, Thank You Letter, Antibiotic Education, Prescription Opioid Use. Follow up: Dr. Prem Reyes; When: 1 - 2 days; Reason: Recheck today's complaints, Continuance of care, Re-evaluation by your physician. [facility]
== END 2018-08-10 21:02 | disposition home or self-care (01) ==
LOC: ER 15:45
PROC: 2W3CX1Z Immobilization of Right Lower Arm using Splint (ICD-10-PCS; principal; 2018-08-10)
DX: S62.306A Unspecified fracture of fifth metacarpal bone, right hand, initial encounter for closed fracture (principal); W18.09XA Striking against other object with subsequent fall, initial encounter; Y93.89 Activity, other specified; Y92.9 Unspecified place or not applicable; G30.9 Alzheimer's disease, unspecified; F02.80 Dementia in other diseases classified elsewhere, unspecified severity, without behavioral disturbance, psychotic disturbance, mood disturbance, and anxiety
CPT/HCPCS: 73200; 96372; 99284